=== PATIENT | male | born 1990 | race African-American/Black ===

== ENCOUNTER 2024-05-07 21:29 | Emergency (ER) | payer OTHER ==
[2024-05-07 21:49] VITALS: RESP 18; BMI 25.0
[2024-05-07 22:28] VITALS: BP 123/97; PULSE 110; TEMP 97.1
[2024-05-07] MEDS ORDERED: ACETAMINOPHEN 325 MG TABLET (FP) ONE (22:49)
[2024-05-07] MEDS: ACETAMINOPHEN 500 MG TABLET (FP) PO ONE (22:53)
== END 2024-05-08 02:23 | disposition left against medical advice (07) ==
LOC: JER 21:29
PROC: 08QNXZZ Repair Right Upper Eyelid, External Approach (ICD-10-PCS; principal; 2024-05-07)
DX: S82.141A Displaced bicondylar fracture of right tibia, initial encounter for closed fracture (principal); S01.111A Laceration without foreign body of right eyelid and periocular area, initial encounter; Y04.8XXA Assault by other bodily force, initial encounter
CPT/HCPCS: 73564-TC-RT-FY; 73700-TC-RT; 99284-25

== ENCOUNTER 2024-05-08 05:22 | Emergency (ER) | payer OTHER ==
[2024-05-08 05:34] VITALS: BMI 24.3
[2024-05-08] MEDS ORDERED: morphine SULFATE 4 MG/ML VIAL ONE ×3 (05:50→09:47)
[2024-05-08] MEDS: morphine CARPU-JECT 4 MG/1 ML DISP.SYRIN IVPUSH ONE ×3 (06:12→09:54)
[2024-05-08 06:35] LABS: INR 0.99 (0.83-1.09); PROTHROMBIN TIME (PATIENT) 11.4 SEC (9.7-13.0)
[2024-05-08 06:38] LABS: ACTIVATED PTT 25.8 SECONDS (25.2-36.5)
[2024-05-08 06:40] LABS: BASO % 0.1 % (0-2.0); HEMATOCRIT 39.8 % (35.4-49); HEMOGLOBIN 13.1 GM/dL (11.7-16.9); LYMPH % 8.9 % (8-40); MCH 29.8 pg (25.7-33.7); MCHC 32.9 g/dl (32.0-35.9); MEAN CELL VOLUME 90.5 fl (80-96); MEAN PLT VOLUME 9.1 fl (7.5-11.1); MONO % 6.9 % (3.8-10.2); NEUT % 84.1 % (42.8-82.8); PLATELET COUNT 169 10^3/uL (134-434); RDW 13.6 % (11.9-15.9); WHITE BLOOD COUNT 15.2 K/mm3 (4.0-10.0)
[2024-05-08 06:43] LABS: POTASSIUM 4.2 mmol/L (3.5-5.1)
[2024-05-08 06:45] LABS: ALBUMIN 3.9 g/dl (3.4-5.0); CALCIUM 8.7 mg/dL (8.5-10.1)
[2024-05-08 06:46] LABS: BLOOD UREA NITROGEN 9.9 mg/dL (7-18)
[2024-05-08 06:49] LABS: CREATININE 0.9 mg/dL (0.55-1.3)
[2024-05-08 06:50] LABS: BILIRUBIN,TOTAL 0.8 mg/dL (0.2-1); TOT PROT 7.5 g/dl (6.4-8.2)
[2024-05-08] MEDS ORDERED: HYDROmorphone HCl 2 MG/ML VIAL ONE (07:03)
[2024-05-08] MEDS: HYDROmorphone HCl 2 MG/ML VIAL IVPUSH ONE (07:11)
[2024-05-08] MEDS ORDERED: ONDANSETRON 4 MG/2 ML VIAL ONE (08:01)
[2024-05-08] MEDS: ONDANSETRON 4 MG/2 ML VIAL IVPUSH ONE (08:05)
[2024-05-08 10:05] VITALS: BP 126/81; PULSE 77; RESP 14; TEMP 98
== END 2024-05-08 10:19 | disposition short-term general hospital (02) ==
LOC: JER 05:22
PROC: 3E033GC Introduction of Other Therapeutic Substance into Peripheral Vein, Percutaneous Approach (ICD-10-PCS; principal; 2024-05-08)
PROC: 3E033NZ Introduction of Analgesics, Hypnotics, Sedatives into Peripheral Vein, Percutaneous Approach (ICD-10-PCS; 2024-05-08)
PROC: 3E033NZ Introduction of Analgesics, Hypnotics, Sedatives into Peripheral Vein, Percutaneous Approach (ICD-10-PCS; 2024-05-08)
PROC: 3E033NZ Introduction of Analgesics, Hypnotics, Sedatives into Peripheral Vein, Percutaneous Approach (ICD-10-PCS; 2024-05-08)
PROC: 3E033NZ Introduction of Analgesics, Hypnotics, Sedatives into Peripheral Vein, Percutaneous Approach (ICD-10-PCS; 2024-05-08)
DX: S82.251A Displaced comminuted fracture of shaft of right tibia, initial encounter for closed fracture (principal); Y04.8XXA Assault by other bodily force, initial encounter
CPT/HCPCS: 36415; 80053; 85025; 85610; 85730; 86850; 86900; 86901; 99285-25